=== PATIENT | female | born 1980 | race Caucasian/White ===

== ENCOUNTER 2018-03-02 10:42 | Emergency (ER) | payer OTHER ==
[2018-03-02 10:43] VITALS: BMI 27.4
[2018-03-02 10:56] VITALS: BP 125/82; PULSE 68; RESP 18; TEMP 98.2; O2SAT 99
[2018-03-02] MEDS ORDERED: Amoxicillin-Clav 875-125 mg Tab PO STA (11:16)
--- NOTE | 2018-03-02 11:21 | ED PDOC ---
Arrival/HPI - General Chief Complaint: ENT Problem Time Seen by Provider: 03/02/18 11:16 Historian: Patient - History of Present Illness Narrative History of Present Illness (Text): 03/02/18 11:17 37 y/o female, pmh including migraine/sinusitis, not allergy to naproxen and takes motrin at home, c/o nasal congestion/headache/cough x 1 week with no recent traveling. Nasal congestion, associated with frontal headache, associated with dry coughing, no chest pain or shortness of breath, no neck stiffness, no numbness or tingling, no palpitation, no night sweat, no rash, no other medical or psychological complaints. Past Medical History - Provider Review Nursing Documentation Reviewed: Yes - Infectious Disease Hx of Infectious Diseases: None - Tetanus Immunization Tetanus Immunization: Up to Date - Cardiac Hx Cardiac Disorders: No - Pulmonary Hx Respiratory Disorders: Yes - Neurological Hx Neurological Disorder: Yes Hx Headaches: Yes - HEENT Hx HEENT Disorder: No - Renal Hx Renal Disorder: No - Endocrine/Metabolic Hx Endocrine Disorders: No - Hematological/Oncological Hx Blood Disorders: No - Integumentary Hx Dermatological Disorder: No - Musculoskeletal/Rheumatological Hx Musculoskeletal Disorders: Yes Hx Back Pain: Yes Hx Herniated Disk: Yes - Gastrointestinal Hx Gastrointestinal Disorders: Yes Hx Gastritis: Yes - Genitourinary/Gynecological Hx Genitourinary Disorders: No - Psychiatric Hx Psychophysiologic Disorder: No Hx Substance Use: No - Surgical History Other/Comment: Essure- coil - Anesthesia Hx Anesthesia: Yes - Suicidal Assessment Feels Threatened In Home Enviroment: No Family/Social History - Physician Review Nursing Documentation Reviewed: Yes Family/Social History: Unknown Family HX Smoking Status: Never Smoked Hx Alcohol Use: Yes Frequency of alcohol use: Socially Hx Substance Use: No Allergies/Home Meds Allergies/Adverse Reactions: Allergies naproxen Allergy (Verified 03/02/18 10:56) PAIN shellfish derived Allergy (Verified 03/02/18 10:56) PAIN Home Medications: Home Meds Medication Instructions Recorded Confirmed Sumatriptan Succinate [Imitrex] 100 mg PO BID PRN 03/02/18 03/02/18 Review of Systems - Review of Systems Constitutional: absent: Fatigue, Fevers Eyes: absent: Vision Changes ENT: Rhinorrhea, Sinus Congestion. absent: Hearing Changes Respiratory: Cough. absent: SOB Cardiovascular: absent: Chest Pain Gastrointestinal: absent: Abdominal Pain, Nausea, Vomiting Musculoskeletal: absent: Arthralgias, Back Pain Skin: absent: Rash, Pruritis Neurological: Headache. absent: Dizziness Psychiatric: absent: Anxiety, Depression Physical Exam Vital Signs Reviewed: Yes Vital Signs Temp Pulse Resp BP Pulse Ox 03/02/18 10:51 98.2 F 68 18 125/82 99 Temperature: Afebrile Blood Pressure: Normal Pulse: Regular Respiratory Rate: Normal Appearance: Positive for: Well-Appearing, Non-Toxic, Comfortable Pain Distress: Moderate Mental Status: Positive for: Alert and Oriented X 3 - Systems Exam Head: Present: Atraumatic, Normocephalic, Other (+ttp on the lt. maxillary sinus region, no periorbital swelling). No: Tenderness, Contusion, Swelling, Ecchymosis, Abrasion, Laceration Pupils: Present: PERRL Extroacular Muscles: Present: EOMI Conjunctiva: Present: Normal Ears: Present: NORMAL TM, Normal Canal. No: Erythema Mouth: Present: Moist Mucous Membranes Pharnyx: Present: Normal. No: ERYTHEMA, EXUDATE, TONSILS ENLARGED Nose (External): Present: Atraumatic. No: Abrasion, Contusion, Laceration, Lesions Nose (Internal): Present: Normal Inspection, No Active Bleeding. No: Rhinorrhea , Septal Hematoma, Epistaxis Neck: Present: Normal Range of Motion, Trachea Midline. No: Meningeal Signs, MIDLINE TENDERNESS, Paraspinal Tenderness, Lymphadenopathy Respiratory/Chest: Present: Clear to Auscultation, Good Air Exchange. No: Respiratory Distress, Accessory Muscle Use Cardiovascular: Present: Regular Rate and Rhythm, Normal S1, S2. No: Murmurs Abdomen: No: Tenderness, Distention, Peritoneal Signs, Rebound, Guarding Back: Present: Normal Inspection. No: CVA Tenderness, Midline Tenderness Upper Extremity: Present: Normal Inspection. No: Cyanosis, Edema Lower Extremity: Present: Normal Inspection. No: Edema Neurological: Present: GCS=15, CN II-XII Intact, Speech Normal, Motor Func Grossly Intact, Gait Normal, Memory Normal Skin: Present: Warm, Dry, Normal Color. No: Rashes Psychiatric: Present: Alert, Oriented x 3, Normal Insight, Normal Concentration Medical Decision Making ED Course and Treatment: 03/02/18 11:20 -Toradol IM (pt. had toradol and motrin before with no adverse reaction or side effect) -Observe and reassess 03/02/18 12:22 -Urine hcg is negative. -Pt. feels much better now -Pt. refused augmentin and request zithromax, choice of why augmentin explain to the patient but she still prefers zithromax -Discharge home with zithromax, flonase, claritin d24, tessalon, take tylenol at home as needed, follow up with your own pmd and ENT within 2 days, return to the ER for any new or worsening signs or symptoms. - Medication Orders Current Medication Orders: Discontinued Medications Ketorolac Tromethamine (Toradol) 60 mg IM STAT STA Stop: 03/02/18 11:17 Last Admin: 03/02/18 11:25 Dose: 60 mg MAR Pain Assessment Document 03/02/18 11:25 EQ (Rec: 03/02/18 11:25 EQ [id number] Pain Reassessment Is this a pain reassessment? No Sleep Is patient sleeping during reassessment? No Presence of Pain Presence of Pain Yes Pain Scale Used Pain Scale Used Numeric IM Administration Charges Document 03/02/18 11:25 EQ (Rec: 03/02/18 11:25 EQ [id number] Charges for Administration # of IM Administrations 1 - PA / DIRECTOR FEDERAL / Resident Statement / has reviewed & agrees with the documentation as recorded. Disposition/Present on Arrival - Present on Arrival Any Indicators Present on Arrival: No History of DVT/PE: No History of Uncontrolled Diabetes: No Urinary Catheter: No History of Decub. Ulcer: No History Surgical Site Infection Following: None - Disposition Have Diagnosis and Disposition been Completed?: Yes Diagnosis: Sinusitis Disposition: HOME/ ROUTINE Disposition Time: 11:22 Patient Plan: Discharge Patient Problems: Current Active Problems Problem Status Onset Sinusitis Acute Condition: IMPROVED Additional Instructions: -Discharge home with zithromax, flonase, claritin d24, tessalon, take tylenol at home as needed, follow up with your own pmd and ENT within 2 days, return to the ER for any new or worsening signs or symptoms. Prescriptions: Azithromycin [Zithromax] 250 mg PO DAILY #6 tab Benzonatate [Tessalon Perles] 100 mg PO TID #30 sgl Fluticasone Propionate [Flonase Allergy Relief] 1 spray NS DAILY #1 spray.susp Loratadine/Pseudoephedrine [Claritin-D 24 Hour Tablet] 1 each PO DAILY #5 tab Referrals: Zohaib Martinez, [Staff Provider] - Follow up with primary [facility]] - Follow up with primary Forms: [employer] (Malaysian), WORK NOTE
== END 2018-03-02 12:41 | disposition home or self-care (01) ==
LOC: ED 10:42
DX: J32.9 Chronic sinusitis, unspecified (principal)
CPT/HCPCS: 96372; 99283; J1885

== ENCOUNTER 2018-11-18 19:40 | Emergency (ER) | payer OTHER ==
[2018-11-18 19:51] VITALS: BMI 26.1
[2018-11-18] MEDS ORDERED: Sodium Chloride 0.9% 1,000 ML IV STA (20:16)
--- NOTE | 2018-11-18 21:22 | ED PDOC ---
Arrival/HPI - General Chief Complaint: Dizziness/Lightheaded Historian: Patient - History of Present Illness Narrative History of Present Illness (Text): 11/18/18 21:23 Ciara Covarrubias is a 38 y.o female with past medical history of migraine and sciatica, allergic to only naproxen who presents to emergency department complaints of dizziness and pressure to the back part of her head since 4:00pm today. Patient states she has not taken any medication for the pain. Patient notes dizziness is similar to previous migraines symptoms. Patient states dizziness worsens with walking, standing, and laying down. Patient denies any fever, chest pain, nausea, vomiting, diarrhea, back pain, neck pain, or any other associated symptom. Time/Duration: 4-6 hours (4:00pm) Symptom Onset: Gradual Symptom Course: Unchanged Context: Home Past Medical History - Provider Review Nursing Documentation Reviewed: Yes - Infectious Disease Hx of Infectious Diseases: None - Tetanus Immunization Tetanus Immunization: Up to Date - Cardiac Hx Cardiac Disorders: No - Pulmonary Hx Respiratory Disorders: Yes - Neurological Hx Neurological Disorder: Yes Hx Headaches: Yes Hx Migraine: Yes - HEENT Hx Sinusitis: Yes - Renal Hx Renal Disorder: No - Endocrine/Metabolic Hx Endocrine Disorders: No - Hematological/Oncological Hx Blood Disorders: No - Integumentary Hx Dermatological Disorder: No - Musculoskeletal/Rheumatological Hx Musculoskeletal Disorders: Yes Hx Back Pain: Yes Hx Herniated Disk: Yes (x5) - Gastrointestinal Hx Gastrointestinal Disorders: Yes Hx Gastritis: Yes - Genitourinary/Gynecological Hx Genitourinary Disorders: No - Psychiatric Hx Psychophysiologic Disorder: No Hx Substance Use: No - Surgical History Other/Comment: Essure- coil - Anesthesia Hx Anesthesia: Yes - Suicidal Assessment Feels Threatened In Home Enviroment: No Family/Social History - Physician Review Nursing Documentation Reviewed: Yes Family/Social History: Unknown Family HX Smoking Status: Never Smoked Hx Alcohol Use: Yes Hx Substance Use: No Allergies/Home Meds Allergies/Adverse Reactions: Allergies amoxicillin [From Augmentin] Allergy (Verified 11/18/18 20:42) RASH clavulanic acid [From Augmentin] Allergy (Verified 11/18/18 20:42) RASH naproxen Allergy (Verified 11/18/18 20:42) PAIN shellfish derived Allergy (Verified 11/18/18 20:42) PAIN Home Medications: Home Meds Medication Instructions Recorded Confirmed Sumatriptan Succinate [Imitrex] 100 mg PO BID PRN 03/02/18 03/02/18 Review of Systems - Physician Review All systems were reviewed & negative as marked: Yes - Review of Systems Constitutional: absent: Fatigue, Fevers Eyes: absent: Vision Changes ENT: absent: Hearing Changes Respiratory: absent: SOB, Cough, Wheezing Cardiovascular: absent: Chest Pain Gastrointestinal: absent: Abdominal Pain, Diarrhea, Nausea, Vomiting Musculoskeletal: absent: Back Pain, Neck Pain Skin: absent: Rash, Laceration Neurological: Dizziness (Dizziness with pressure to back of head. ) Psychiatric: absent: Anxiety, Depression Physical Exam Vital Signs Reviewed: Yes Vital Signs Pulse Resp BP Pulse Ox 11/18/18 19:51 79 18 136/84 100 Temperature: Afebrile Blood Pressure: Normal Pulse: Regular Respiratory Rate: Normal Appearance: Positive for: Well-Appearing, Non-Toxic, Comfortable Pain Distress: None Mental Status: Positive for: Alert and Oriented X 3 - Systems Exam Head: Present: Other (Headache ). No: Ecchymosis, Abrasion Pupils: Present: PERRL. No: Sluggish, Non-Reactive Extroacular Muscles: Present: EOMI Conjunctiva: Present: Normal Mouth: Present: Moist Mucous Membranes Neck: Present: Normal Range of Motion. No: Meningeal Signs, JVD Respiratory/Chest: Present: Clear to Auscultation, Good Air Exchange, Respiratory Distress Cardiovascular: Present: Regular Rate and Rhythm, Normal S1, S2. No: Murmurs, Tachycardic Abdomen: No: Tenderness, Distention, Peritoneal Signs Back: Present: Normal Inspection. No: CVA Tenderness, Midline Tenderness Upper Extremity: Present: Normal Inspection. No: Cyanosis, Edema, Tenderness, Swelling Lower Extremity: Present: Normal Inspection, Normal ROM. No: Edema Neurological: Present: GCS=15, Speech Normal Skin: Present: Warm, Dry, Normal Color. No: Rashes Psychiatric: Present: Alert, Oriented x 3, Normal Insight, Normal Concentration Medical Decision Making - Medication Orders Current Medication Orders: Discontinued Medications Dexamethasone (Decadron Inj) 10 mg IVP STAT STA Stop: 11/18/18 20:17 Last Admin: 11/18/18 21:14 Dose: 10 mg IVP Administration Document 11/18/18 21:14 NICOLASA (Rec: 11/18/18 21:14 [id number] Charges for Administration # of IVP Administrations 1 Sodium Chloride (Sodium Chloride 0.9%) 1,000 mls @ 999 mls/hr IV .Q1H1M STA Stop: 11/18/18 21:16 Last Admin: 11/18/18 21:15 Dose: 999 mls/hr eMAR Start Stop Document 11/18/18 21:15 LA (Rec: 11/18/18 21:15 [id number] Intravenous Solution Start Date 11/18/18 Start Time 21:15 End Date 11/18/18 End time 22:15 Total Infusion Time 60 Ketorolac Tromethamine (Toradol) 30 mg IVP STAT STA Stop: 11/18/18 20:38 Last Admin: 11/18/18 21:15 Dose: 30 mg MAR Pain Assessment Document 11/18/18 21:15 LA (Rec: 11/18/18 21:15 [id number] Pain Reassessment Is this a pain reassessment? No Presence of Pain Presence of Pain Yes IVP Administration Document 11/18/18 21:15 LA (Rec: 11/18/18 21:15 [id number]) Charges for Administration # of IVP Administrations 1 Metoclopramide HCl (Reglan) 10 mg IVP STAT STA Stop: 11/18/18 20:17 Last Admin: 11/18/18 21:14 Dose: 10 mg IVP Administration Document 11/18/18 21:14 LA (Rec: 11/18/18 21:15 [id number]) Charges for Administration # of IVP Administrations 1 - Scribe Statement The provider has reviewed the documentation as recorded by the Scribe All medical record entries made by the Scribe were at my direction and personally dictated by me. I have reviewed the chart and agree that the record accurately reflects my personal performance of the history, physical exam, medical decision making, and the department course for this patient. I have also personally directed, reviewed, and agree with the discharge instructions and disposition. Disposition/Present on Arrival - Present on Arrival Any Indicators Present on Arrival: No History of DVT/PE: No History of Uncontrolled Diabetes: No Urinary Catheter: No History of Decub. Ulcer: No History Surgical Site Infection Following: None - Disposition Have Diagnosis and Disposition been Completed?: Yes Diagnosis: Vertigo, Migraine Disposition: HOME/ ROUTINE Disposition Time: 22:16 Patient Plan: Discharge Condition: IMPROVED Discharge Instructions (ExitCare): Migraine Headache (DC), Vertigo (a Type of Dizziness) (DC) Print Language: CZECH Additional Instructions: All medical record entries made by the Scribe were at my direction and personally dictated by me. I have reviewed the chart and agree that the record accurately reflects my personal performance of the history, physical exam, medical decision making, and the department course for this patient. I have also personally directed, reviewed, and agree with the discharge instructions and disposition. Please follow up with your PCP in 3-5 days If you choose to follow up with a new neurologist, please try calling to schedule an appointment with one of the names listed in your discharge paperwork If you have recurrent or continuing symptoms, please return to the Emergency Department for medical evaluation Prescriptions: Meclizine [Antivert] 12.5 mg PO PRN PRN #10 tab PRN Reason: Nausea/Vomiting Metoclopramide HCl [Reglan] 10 mg PO Q6H #10 tablet Referrals: Justin Burgess MD [Staff Provider] - Follow up with primary Jaswinder Rooney MD [Staff Provider] - Follow up with primary Martell Son MD [Staff Provider] - Follow up with primary Forms: [employer] (Polish), WORK NOTE
[2018-11-18 23:09] VITALS: BP 127/82; PULSE 73; RESP 15; O2SAT 99
== END 2018-11-18 22:35 | disposition home or self-care (01) ==
LOC: ED 19:40
DX: G43.909 Migraine, unspecified, not intractable, without status migrainosus (principal); R42 Dizziness and giddiness
CPT/HCPCS: 81025; 96361; 96374; 96375; 99285; J1100; J1885; J2765; J7030